=== PATIENT | female | born 1995 | race Caucasian/White ===

== ENCOUNTER 2019-11-06 20:30 | Emergency (ER) | payer OTHER ==
[~2019-11-06] VITALS: Ht 162.6 cm; Wt 87.5 kg
[2019-11-06] MEDS ORDERED: PRENA1 TRUE CO1 EACH (20:45)
== END 2019-11-06 23:49 | disposition home or self-care (01) ==
LOC: ER 20:30
DX: O20.8 Other hemorrhage in early pregnancy (principal)

== ENCOUNTER 2019-11-10 16:09 | Emergency (ER) | payer OTHER ==
[~2019-11-10] VITALS: Ht 162.6 cm; Wt 87.5 kg
[~2019-11-10 16:09] MED LIST: PRENA1 TRUE CO1 EACH
== END 2019-11-10 20:18 | disposition home or self-care (01) ==
LOC: ER 16:09
DX: O20.8 Other hemorrhage in early pregnancy (principal); Z03.818 Encounter for observation for suspected exposure to other biological agents ruled out; Z3A.01 Less than 8 weeks gestation of pregnancy

== ENCOUNTER 2019-12-04 13:27 | Emergency (ER) | payer OTHER ==
[~2019-12-04] VITALS: Ht 162.6 cm; Wt 86.2 kg
[2019-12-04] MEDS ORDERED: IRON325 MG (13:35)
== END 2019-12-04 22:16 | disposition home or self-care (01) ==
LOC: ER 13:27 → SEC-K 19:45 → ER 19:45
DX: O02.1 Missed abortion (principal); O26.851 Spotting complicating pregnancy, first trimester; O36.80X0 Pregnancy with inconclusive fetal viability, not applicable or unspecified; Z3A.08 8 weeks gestation of pregnancy

== ENCOUNTER 2019-12-11 17:42 | Day surgery (SDC) | payer OTHER ==
[~2019-12-11] VITALS: Ht 162.6 cm; Wt 85.3 kg
[~2019-12-11 17:42] MED LIST changes: +IRON325 MG
== END 2019-12-12 09:00 | disposition home or self-care (01) ==
LOC: SEC-K 17:42 → ER 17:42 → CIR.AMB 17:42 → O/R 17:42 → EDSTATUS 19:00 → O/R 19:18 → SEC-K 19:18 → O/R 12-12 02:00 → CIR.AMB 12-12 09:00
PROVIDERS: ATTEND General Practice
DX: O03.4 Incomplete spontaneous abortion without complication (principal); Z20.828 Contact with and (suspected) exposure to other viral communicable diseases

== ENCOUNTER 2020-05-27 11:37 | Emergency (ER) | payer OTHER ==
[~2020-05-27] VITALS: Ht 162.6 cm; Wt 861.8 kg
== END 2020-05-27 15:56 | disposition home or self-care (01) ==
LOC: ER 11:37
DX: O26.851 Spotting complicating pregnancy, first trimester (principal); O36.80X1 Pregnancy with inconclusive fetal viability, fetus 1; Z34.01 Encounter for supervision of normal first pregnancy, first trimester

== ENCOUNTER → 2020-06-29 | Outpatient (CLI) | payer OTHER | END | disposition home or self-care (01) | LOC: PRENATAL 10:58 | PROVIDERS: ATTEND Obstetrics & Gynecology Maternal & Fetal Medicine | DX: Z36.89 Encounter for other specified antenatal screening (principal); O36.80X1 Pregnancy with inconclusive fetal viability, fetus 1; Z3A.12 12 weeks gestation of pregnancy ==

== ENCOUNTER 2020-07-10 12:45 | Emergency (ER) | payer OTHER ==
[~2020-07-10] VITALS: Ht 162.6 cm; Wt 86.2 kg
== END 2020-07-10 17:54 | disposition home or self-care (01) ==
LOC: ER 12:45
DX: O23.591 Infection of other part of genital tract in pregnancy, first trimester (principal); O23.41 Unspecified infection of urinary tract in pregnancy, first trimester; Z34.01 Encounter for supervision of normal first pregnancy, first trimester

== ENCOUNTER → 2020-08-26 | Outpatient (CLI) | payer OTHER | END | disposition home or self-care (01) | LOC: PRENATAL 07:46 | PROVIDERS: ATTEND Obstetrics & Gynecology Maternal & Fetal Medicine | DX: O35.0XX1 Maternal care for (suspected) central nervous system malformation in fetus, fetus 1 (principal); O35.3XX1 Maternal care for (suspected) damage to fetus from viral disease in mother, fetus 1; O98.512 Other viral diseases complicating pregnancy, second trimester; Z36.89 Encounter for other specified antenatal screening; Z3A.20 20 weeks gestation of pregnancy ==

== ENCOUNTER → 2020-09-23 | Outpatient (CLI) | payer OTHER | END | disposition home or self-care (01) | LOC: PRENATAL 09:25 | PROVIDERS: ATTEND Obstetrics & Gynecology Maternal & Fetal Medicine | DX: O26.842 Uterine size-date discrepancy, second trimester (principal); O99.212 Obesity complicating pregnancy, second trimester; O36.5921 Maternal care for other known or suspected poor fetal growth, second trimester, fetus 1; Z36.89 Encounter for other specified antenatal screening; Z3A.23 23 weeks gestation of pregnancy ==

== ENCOUNTER 2020-10-04 16:53 | Outpatient (CLI) | payer OTHER | END 2020-10-05 17:17 | disposition home or self-care (01) | LOC: OBS/DEL 16:53 | PROVIDERS: ATTEND Obstetrics & Gynecology | DX: O26.842 Uterine size-date discrepancy, second trimester (principal); O34.211 Maternal care for low transverse scar from previous cesarean delivery; O99.212 Obesity complicating pregnancy, second trimester; O36.5920 Maternal care for other known or suspected poor fetal growth, second trimester, not applicable or unspecified; O42.012 Preterm premature rupture of membranes, onset of labor within 24 hours of rupture, second trimester; Z3A.26 26 weeks gestation of pregnancy ==

== ENCOUNTER 2020-10-27 13:05 | Outpatient (CLI) | payer OTHER | END 2020-10-27 14:30 | disposition home or self-care (01) | LOC: PRENATAL 13:05 | PROVIDERS: ATTEND Obstetrics & Gynecology Maternal & Fetal Medicine | DX: O26.843 Uterine size-date discrepancy, third trimester (principal); O99.213 Obesity complicating pregnancy, third trimester; O36.5931 Maternal care for other known or suspected poor fetal growth, third trimester, fetus 1; Z36.89 Encounter for other specified antenatal screening; Z3A.28 28 weeks gestation of pregnancy ==

== ENCOUNTER 2020-11-17 10:25 | Outpatient (CLI) | payer OTHER | END 2020-11-17 11:43 | disposition home or self-care (01) | LOC: PRENATAL 10:25 | PROVIDERS: ATTEND Obstetrics & Gynecology Maternal & Fetal Medicine | DX: O26.843 Uterine size-date discrepancy, third trimester (principal); O99.213 Obesity complicating pregnancy, third trimester; O36.5931 Maternal care for other known or suspected poor fetal growth, third trimester, fetus 1; Z36.89 Encounter for other specified antenatal screening; Z3A.31 31 weeks gestation of pregnancy ==

== ENCOUNTER 2021-01-02 09:24 | Inpatient (IN) | payer OTHER ==
[~2021-01-02] VITALS: Ht 162.6 cm; Wt 2.7 kg
== END 2021-01-05 15:58 | disposition home or self-care (01) | DRG 785 ==
LOC: LDR 09:24 → OB/GYN 09:24 → LDR 09:54 → OB/GYN 01-03 01:53
PROVIDERS: ADMIT Obstetrics & Gynecology; ATTEND Obstetrics & Gynecology
PROC: 0UB70ZZ Excision of Bilateral Fallopian Tubes, Open Approach (ICD-10-PCS; 2021-01-02)
PROC: 4A1HXFZ Monitoring of Products of Conception, Cardiac Rhythm, External Approach (ICD-10-PCS; 2021-01-02)
PROC: 10D00Z1 Extraction of Products of Conception, Low, Open Approach (ICD-10-PCS; principal; 2021-01-02 22:45)
DX: O34.211 Maternal care for low transverse scar from previous cesarean delivery (principal); Z30.2 Encounter for sterilization; Z37.0 Single live birth; Z3A.39 39 weeks gestation of pregnancy